=== PATIENT | male | born 1970 | race Caucasian/White ===

== ENCOUNTER 2016-06-14 15:36 | Emergency (ER) | payer BC ==
[~2016-06-14] VITALS: Ht 182.9 cm; Wt 106.8 kg
[2016-06-14] MEDS ORDERED: SODIUM CHLORIDE FLUSH 10ML SYR IVF ONE (16:30)
[2016-06-14] MEDS ORDERED: SODIUM CHLORIDE 0.9% 1,000ML IVBOLUS ONE (16:30)
[2016-06-14 16:41] LABS: HEMOGLOBIN 15.4 g/dL (13.7-18.0)
[2016-06-14 16:50] LABS: BLOOD UREA NITROGEN 17 mg/dL (7-18)
[2016-06-14] MEDS ORDERED: LORazepam 1MG TABLET PO ONE (17:00)
[2016-06-14] MEDS ORDERED: OMNIPAQUE 350 MG/ML, 100ML BOTTLE ONE (18:00)
[2016-06-14] MEDS ORDERED: IBUPROFEN 200 MG TABLET ONE (20:13)
[2016-06-14] MEDS ORDERED: IBUPROFEN 200 MG TABLET PO ONE (20:30)
[2016-06-14] MEDS ORDERED: ACETAMINOPHEN 500 MG TABLET ONE (20:53)
[2016-06-14 20:59] VITALS: BP 116/67
[2016-06-14] MEDS ORDERED: ACETAMINOPHEN 500 MG TABLET PO ONE (21:00)
== END 2016-06-14 21:01 | disposition home or self-care (01) ==
LOC: ED 18:39
DX: J01.00 Acute maxillary sinusitis, unspecified (principal); L03.115 Cellulitis of right lower limb; J45.909 Unspecified asthma, uncomplicated
CPT/HCPCS: 36415; 71020; 71275; 80048; 81003; 82040; 83605; 84145; 85025; 85379; 87040; 93005; 93970; 96360; 96361; 99285; J7030; Q9967